=== PATIENT | male | born 1940 | race Two or more races ===

== ENCOUNTER 2020-04-28 14:43 | Emergency (ER) | payer OTHER ==
[2020-04-28] MEDS ORDERED: NOREPINEPHRINE 8 MG/250ML KIT 250 ML IV ONE (15:11)
[2020-04-28] MEDS ORDERED: SODIUM BICARBONATE 8.4% INJ 50ML SYRINGE ONE (15:16)
[2020-04-28] MEDS ORDERED: LORazepam 2MG/ML-1ML VIAL ONE (15:21)
[2020-04-28] MEDS ORDERED: EPINEPHrine HCL 1 MG/10 ML SYRG ONE (15:32)
[2020-04-28 15:35] VITALS: BP 60/35
[2020-04-28] MEDS ORDERED: NOREPINEPHRINE 8 MG/250ML KIT 250 ML IV SCH (16:24)
[2020-04-28] MEDS ORDERED: ATROPINE SULF 1 MG/10ml SYR IV ONE (16:30)
[2020-04-28] MEDS ORDERED: LORazepam 2MG/ML-1ML VIAL IV ONE (16:45)
== END 2020-04-28 19:34 | disposition expired ==
LOC: ER 14:43 → EDBD 14:45 → ER 19:34
DX: I46.9 Cardiac arrest, cause unspecified (principal); R41.82 Altered mental status, unspecified
CPT/HCPCS: 70450; 71045; 92950; 96374; 96375; 99291; J0171; J2060